=== PATIENT | female | born 1955 | race Caucasian/White ===

== ENCOUNTER 2023-07-04 09:32 | Day surgery (SDC) | payer BC, MEDICARE ==
[~2023-07-04] VITALS: Ht 160 cm; Wt 111.0 kg
[~2023-07-04 09:32] MED LIST: CARDURA4 MG PO; LEVOTHYROXINE25 MC1 PO; LIPITOR20 MG PO; LISINOPRIL-HCT1 EACH PO; METFORMIN HCL500 M3 PO
[2023-07-04 12:23] VITALS: BP 135/54
[2023-07-04] MEDS ORDERED: VITAMIN D210 MCG PO (12:26)
[2023-07-04] MEDS ORDERED: BAYER CHEWABLE81 MG PO (12:26)
[2023-07-04] MEDS ORDERED: K-TAB ER20 MEQ PO (12:26)
--- NOTE | 2023-07-04 15:25 | NUR ---
07/04/23 1525 Latoya Meyer 1510 PT ARRIVED TO PACU ON RA, PT AWAKE AND TALKING TO RN. PT ENCOURAGED TO PASS GAS/AIR. PT DENIES CONCERNS. PLAN OF CARE DISCUSSED IRREGULAR HEART BEAT WITH PACS NOTED, NO CHANGE FROM OR. MD AWARE. PT DENIES ANY SYMPTOMS. 1520 MD AT BEDSIDE TALKING TO PT. 1525 PT SITTING UP AND HOB INCREASED, PT SIPPING JUICE PER REQUEST.
[2023-07-04 16:14] VITALS: BP 140/57
--- NOTE | 2023-07-06 14:11 | OR ---
[facility] [address] [place], [place] [address] Signed DATE OF OPERATION: 07/04/2023 SURGEON: Yusef Jennings MD PREOPERATIVE DIAGNOSES: 1. Positive Cologuard test. 2. History of adenomatous polyp resection 2009. POSTOPERATIVE DIAGNOSES: 1. Polyps x5. 2. Sigmoid diverticulosis. PROCEDURE: Total colonoscopy to cecum with cold snare polypectomy x2, hot snare polypectomy x1 and cold morcellation polypectomy x2. ANESTHESIA: Intravenous sedation, fentanyl 100 mcg and Versed 7 mg. INDICATION: A 68-year-old white woman is a patient of Dr. 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 She lives in [place], [place]. Although she did undergo colonoscopy by me with polypectomy x3 including adenomas. She was administered a Cologuard test, which was found to be positive. She was referred for colonoscopy on that basis. She understands the risk of bleeding, infection, and perforation related to colonoscopy and wished to proceed. FINDINGS: The prep was good. Complete colonoscopy was undertaken to the cecum. There were five polyps in total, two in the right colon, one at the splenic flexure, two at the sigmoid colon. There were diverticula as well. PROCEDURE: The patient was brought to the endoscopy suite and placed in lateral decubitus position, given intravenous sedation to the point of slurred speech and nystagmus. Digital rectal examination was normal. An Olympus video colonoscope was passed in the rectum and manipulated throughout the colon. The patient was noted at baseline to have normal sinus rhythm with occasional premature atrial contractions. She had no hemodynamic compromise during the procedure Electronically Signed By: YUSEF JENNINGS MD 07/06/23 1411 PATIENT NAME: ARLEEN PEREZ APRIL OPERATIVE REPORT DATE OF : 55 REPORT #: [id number] PHYSICIAN: YUSEF JENNINGS MD PCP: REG GEORGE DO REPORT IS CONFIDENTIAL AND NOT TO BE RELEASED WITHOUT AUTHORIZATION [facility] [address] [place], [place] [address] Signed or arrhythmia. The scope was ultimately passed to the cecum. Ileocecal valve and appendiceal orifice were normal. The scope was withdrawn and promptly noted was a sessile polyp. This was excised with cold morcellation technique. Further withdrawal showed another polyp, somewhat larger, about a cm, excised with cold snare technique. This polyp was extracted as well. Scope was withdrawn and a small polyp was noted at the splenic flexure, which was excised with cold morcellation technique. Further withdrawal showed diverticula of the left colon and sigmoid. In the proximal sigmoid was a sessile polyp excised with cold snare technique. Further withdrawal showed a pedunculated polyp 1.5 cm in size in the sigmoid, excised with hot snare polypectomy technique. It was grasped with a three-prong grasper for extraction. The scope was reintroduced and re-examined the sigmoid noting diverticulosis. Scope was withdrawn. Retroflexed view of the rectum was normal. Scope was removed. The patient was taken to the recovery room in good condition. CONCLUDING DIAGNOSIS: Polyps x5, all adenomatous, most likely. PLAN: Recommend repeat colonoscopy in one year. Note, patient is not a candidate for Cologuard testing on the basis of prior history of polyps at this point. Yusef Jennings MD JM/MODL /[id number] cc: Reg George DO Copies: REG GEORGE DO ~ Electronically Signed By: YUSEF JENNINGS MD 07/06/23 1411 PATIENT NAME: ARLEEN PEREZ APRIL OPERATIVE REPORT DATE OF : 55 REPORT #: [id number] PHYSICIAN: YUSEF JENNINGS MD PCP: REG GEORGE DO REPORT IS CONFIDENTIAL AND NOT TO BE RELEASED WITHOUT AUTHORIZATION
--- NOTE | 2023-07-07 16:50 | PATH ---
[facility] [address] [facility] [place], [place] [address] Signed SPECIMEN(S): A ASCENDING/RIGHT COLON POLYP SPECIMEN(S): B ASCENDING/RIGHT COLON POLYP SPECIMEN(S): C SPLENIC FLEXURE COLON POLYP SPECIMEN(S): D DESCENDING/LEFT COLON POLYP AT 80 CM SPECIMEN(S): E SIGMOID POLYP SPECIMEN SOURCE: A. ASCENDING/RIGHT COLON POLYP B. ASCENDING/RIGHT COLON POLYP C. SPLENIC FLEXURE COLON POLYP D. DESCENDING/LEFT COLON POLYP AT 80 CM E. SIGMOID POLYP CLINICAL HISTORY: Hx polyps, +Cologaurd. Dx: Divertic., polyps. FINAL PATHOLOGIC DIAGNOSIS: A. Ascending / right colon polyp: - Serrated polyp / adenoma (one fragment). B. Ascending / right colon polyp: - Tubular adenoma (three fragments). C. Splenic flexure colon polyp: - Tubular adenoma (three fragments). D. Descending / left colon polyp at 80 cm: - Tubular adenoma. E. Sigmoid polyp: - Tubular adenoma, free of the inked polyp stalk margin on these sections. JVR:[facility] MICROSCOPIC EXAMINATION: Histologic sections of all submitted blocks are examined by light microscopy. These findings, together with the gross examination, support the pathologic diagnosis. GROSS DESCRIPTION: A. The specimen, labeled and designated "Lema, ascending colon polyp," is received in formalin and consists of one francis soft tissue fragment, 0.5 cm. Entirely submitted in (A1). B. The specimen, labeled and designated "Lema, ascending colon diverticula polyp," is received in formalin and consists of three francis soft tissue fragments, ranging from 0.2 cm. Entirely submitted PATIENT NAME: ARLEEN LEMA APRIL PATHOLOGY DATE OF : 55 REPORT #: [id number] PHYSICIAN: EMILIANA SANCHEZ PCP: SARWAT GEORGE DO REPORT IS CONFIDENTIAL AND NOT TO BE RELEASED WITHOUT AUTHORIZATION [facility] [address] [place], [place] [address] Signed in (B1). C. The specimen, labeled and designated "Lema, splenic flexure polyp," is received in formalin and consists of five francis soft tissue fragments, ranging from 0.1-0.2 cm. Entirely submitted in (C1). D. The specimen, labeled and designated "Lema, descending colon polyp at 80 cm," is received in formalin and consists of one francis soft tissue fragment, 0.4 cm. Entirely submitted in (D1). E. The specimen, labeled and designated "Lema, sigmoid colon polyp," is received in formalin and consists of one francis soft tissue fragment, 1.1 cm. Resection margin is inked and the specimen is sectioned. Specimen is entirely submitted in (E1). JS (under the direct supervision of a pathologist) The Gross Description was prepared using a voice recognition system. The report was reviewed for accuracy; however, sound-alike word errors, addition and/or deletions may occur. If there is any question about this report, please contact Client Services. PERFORMING LABORATORY: Technical component was performed by [employer], [address] [place] [id number] (CLIA# [id number]). Professional interpretation was performed by [email or web address], [address] [place] [id number] (CLIA#: [id number]). Diagnostician: Jimbo Gabriel MD Pathologist Electronically Signed 07/07/2023 Copies: ~ PATIENT NAME: ARLEEN LEMA APRIL PATHOLOGY DATE OF : 55 REPORT #: [id number] PHYSICIAN: EMILIANA SANCHEZ PCP: SARWAT GEORGE DO REPORT IS CONFIDENTIAL AND NOT TO BE RELEASED WITHOUT AUTHORIZATION
== END 2023-07-04 16:10 | disposition home or self-care (01) ==
LOC: OPS 09:32 → DS 09:32 → OPS 11:00 → DS 14:00 → OPS 16:10
PROVIDERS: ATTEND Surgery
PROC: 0DBL8ZZ Excision of Transverse Colon, Via Natural or Artificial Opening Endoscopic (ICD-10-PCS; 2023-07-04)
PROC: 0DBN8ZZ Excision of Sigmoid Colon, Via Natural or Artificial Opening Endoscopic (ICD-10-PCS; principal; 2023-07-04 11:00)
DX: D12.2 Benign neoplasm of ascending colon (principal); Z86.010 Personal history of colon polyps; E66.01 Morbid (severe) obesity due to excess calories; I10 Essential (primary) hypertension; Z68.41 Body mass index [BMI] 40.0-44.9, adult; K57.30 Diverticulosis of large intestine without perforation or abscess without bleeding; D12.4 Benign neoplasm of descending colon; D12.5 Benign neoplasm of sigmoid colon; D12.3 Benign neoplasm of transverse colon
CPT/HCPCS: 99153; G0500; J2250; J3010; J7121